=== PATIENT | female | born 2000 | race Hispanic/Latino ===

== ENCOUNTER 2019-05-27 17:03 | Emergency (ER) | payer SELFPAY ==
[2019-05-27] MEDS ORDERED: AMOXICILLIN875 MG PO (18:19)
[2019-05-27 18:56] LABS: URINE BILIRUBIN - DIPSTICK NEGATIVE (NEGATIVE); URINE BLOOD DIPSTICK SMALL (NEGATIVE); URINE CLARITY CLEAR; URINE COLOR YELLOW; URINE GLUCOSE - DIPSTICK NEGATIVE (NEGATIVE); URINE KETONE NEGATIVE (NEGATIVE); URINE LEUK ESTERASE NEGATIVE (Negative); URINE NITRITE - DIPSTICK NEGATIVE (Negative); URINE PROTEIN - DIPSTICK NEGATIVE (NEG-TRACE); URINE SPECIFIC GRAVITY >=1.030; URINE UROBILINOGEN - DIPSTICK 0.2 E.U./dL (0.2)
[2019-05-27 18:57] LABS: URINE SQUAMOUS EPITHELIAL CELL FEW EPI/hpf (0-FEW)
[2019-05-27] MEDS ORDERED: AMOX/K CLAV875 M1 PO (19:14)
[2019-05-27 19:45] VITALS: BP 135/70
== END 2019-05-27 19:45 | disposition home or self-care (01) | DRG 153 ==
LOC: ED 17:03
PROVIDERS: Emergency Medicine
DX: J02.0 Streptococcal pharyngitis (principal)